=== PATIENT | female | born 1975 | race Caucasian/White ===

== ENCOUNTER 2019-11-20 12:31 | Outpatient (CLI) | payer OTHER, SELFPAY ==
[2019-11-20 12:45] LABS: Basophils Absolute Auto 0.1 K/mm3 (0.0-0.1); Basophils Percent Auto 0.7 % (0.2-1.2); Eosinophils Absolute Auto 0.3 K/mm3 (0-0.3); Eosinophils Percent Auto 3.4 % (0-4.4); Hematocrit 39.8 % (37.0-47.0); Hemoglobin 13.4 g/dL (12.0-15.0); Immature Granulocyte Absolute 0.03 K/mm3 (0.00-0.031); Immature Granulocyte Percent A 0.3 % (0-0.5); Lymphocytes Absolute Auto 1.99 K/mm3 (0.9-3.2); Lymphocytes Percent Auto 21.7 % (18.3-44.2); Mean Corpuscular HGB Conc 33.7 g/dl (32-36); Mean Corpuscular Hemoglobin 32.1 pg (26-34); Mean Corpuscular Volume 95.2 fl (80-100); Mean Platelet Volume 11.3 fl (7.4-10.4); Monocytes Absolute Auto 0.5 K/mm3 (0.1-0.6); Monocytes Percent Auto 5.9 % (2.6-8.5); Neutrophils Absolute Auto 6.2 K/mm3 (1.3-6.7); Platelet Count Result 278 k/mm3 (150-375); Red Blood Count 4.18 M/mm3 (4.2-5.4); Red Cell Distribution Width 12.7 % (11.5-14.5); White Blood Count 9.2 K/mm3 (4.5-10.0)
[2019-11-20 12:58] LABS: Anion Gap 7.2 mmol/L (7-16); Blood Urea Nitrogen 10 mg/dL (7-17); Calcium 8.8 mg/dL (8.4-10.2); Carbon Dioxide 28 mmol/L (22-30); Chloride 106 mmol/L (98-107); Cholesterol 186 mg/dL (0-200); Estimated Glomerular Filt Rate > 60; Glucose 97 mg/dL (65-105); HDL Direct 62 mg/dL; Magnesium 2.2 mg/dL (1.6-2.3); Potassium 4.2 mmol/L (3.4-5.0); Sodium 137 mmol/L (137-145); Triglycerides 72 mg/dL (<150)
[2019-11-20 13:09] LABS: LDL Cholesterol Direct 104 mg/dL
[2019-11-20 13:34] LABS: Vitamin D 25 Hydroxy 34.2 ng/mL
== END 2019-11-20 12:32 | disposition home or self-care (01) ==
PROVIDERS: PCP Family Medicine; Visit Provider Nurse Practitioner Family
DX: R68.82 Decreased libido (principal); G25.81 Restless legs syndrome; R53.83 Other fatigue; Z13.220 Encounter for screening for lipoid disorders; R20.2 Paresthesia of skin; Z13.29 Encounter for screening for other suspected endocrine disorder; E56.9 Vitamin deficiency, unspecified
CPT/HCPCS: 36415; 80048; 80061; 82306; 82607; 83735; 84443; 85025

== ENCOUNTER 2019-12-10 12:52 | Outpatient (CLI) | payer OTHER, SELFPAY ==
--- NOTE | 2019-12-10 15:00 | NEURO_ITS ---
Patient Number: [id number] Impression: # Complains of numbness and restlessness of legs. # Normal nerve conduction study including F-waves. # Normal needle/EMG exam without evidence of neurogenic changes. # Clinical correlation recommended. Nerve Conduction Studies Anti Sensory Summary Table Stim Site NR Peak (ms) P-T Amp (?V) Site1 Site2 Delta-P (ms) Dist (cm) Simón (m/s) Left Sup Fibular Anti Sensory (Ant Lat Mall) 14 cm 3.6 10.7 14 cm Ant Lat Mall 3.6 16.0 44 Right Sup Fibular Anti Sensory (Ant Lat Mall) 14 cm 3.3 6.6 14 cm Ant Lat Mall 3.3 16.0 48 Left Sural Anti Sensory (Lat Mall) Calf 3.7 7.7 Calf Lat Mall 3.7 16.0 43 Right Sural Anti Sensory (Lat Mall) Calf 3.1 5.2 Calf Lat Mall 3.1 16.0 52 Motor Summary Table Stim Site NR Onset (ms) O-P Amp (mV) Site1 Site2 Delta-0 (ms) Dist (cm) Simón (m/s) Left Peroneal Motor (Vastus Med) Ankle 4.0 1.2 Popit Ankle 7.3 37.0 51 Popit 11.3 1.3 Right Peroneal Motor (Vastus Med) Ankle 3.9 3.9 Popit Ankle 7.7 38.0 49 Popit 11.6 3.1 Left Tibial Motor (Abd Neville Brev) Ankle 4.9 5.5 Knee Ankle 8.5 40.0 47 Knee 13.4 2.8 Right Tibial Motor (Abd Neville Brev) Ankle 4.5 8.5 Knee Ankle 8.4 42.0 50 Knee 12.9 7.1 F Wave Studies NR F-Lat (ms) L-R F-Lat (ms) Left Peroneal (Mrkrs) (EDB) 46.96 0.08 Right Peroneal (Mrkrs) (EDB) 46.87 0.08 Left Tibial (Mrkrs) (Abd Hallucis) 47.79 0.18 Right Tibial (Mrkrs) (Abd Hallucis) 47.98 0.18 EMG Side Muscle Nerve Root Ins Act Fibs Amp Dur Recrt Comment Right AntTibialis Dp Br Fibular L4-5 Nml Nml Nml Nml Nml Right Gastroc Tibial S1-2 Nml Nml Nml Nml Nml Right Fibularis Long Sup Br Fibular L5-S1 Nml Nml Nml Nml Nml Right Flex Dig Long Tibial L5-S2 Nml Nml Nml Nml Nml Right Ext Dig Brev Dp Br Fibular L5, S1 Nml Nml Nml Nml Nml Left AntTibialis Dp Br Fibular L4-5 Nml Nml Nml Nml Nml Left Gastroc Tibial S1-2 Nml Nml Nml Nml Nml Left Fibularis Long Sup Br Fibular L5-S1 Nml Nml Nml Nml Nml Left Flex Dig Long Tibial L5-S2 Nml Nml Nml Nml Nml Left Ext Dig Brev Dp Br Fibular L5, S1 Nml Nml Nml Nml Nml Right QuadratusFem QuadFemoris L4-5, S1 Nml Nml Nml Nml Nml Left QuadratusFem QuadFemoris L4-5, S1 Nml Nml Nml Nml Nml MTDD
== END 2019-12-10 12:53 | disposition home or self-care (01) ==
PROVIDERS: PCP Family Medicine; Visit Provider Nurse Practitioner Family
DX: R20.2 Paresthesia of skin (principal)
CPT/HCPCS: 95886; 95910

== ENCOUNTER 2023-08-08 12:25 | Outpatient (CLI) | payer OTHER, SELFPAY ==
--- NOTE | ~2023-08-08 | XR_ITS ---
Clinical Indication: Smoking history PA and lateral views of the chest: Comparison: None Findings: The lungs are clear, without evidence of focal consolidation or pleural effusion. Cardiome diastinal silhouette is within normal limits. Bones and soft tissues are unremarkable. Impression: Normal chest. Reviewed, dictated and finalized at location . Impression: Normal chest.
[2023-08-08 12:43] LABS: Basophils Percent Auto 0.4 % (0.2-1.2); Eosinophils Absolute Auto 0.2 K/mm3 (0-0.3); Eosinophils Percent Auto 2.7 % (0-4.4); Hematocrit 40.7 % (37.0-47.0); Hemoglobin 13.5 g/dL (12.0-15.0); Immature Granulocyte Absolute 0.03 K/mm3 (0.00-0.031); Immature Granulocyte Percent A 0.3 % (0-0.5); Lymphocytes Percent Auto 31.1 % (18.3-44.2); Mean Corpuscular HGB Conc 33.2 g/dl (32-36); Mean Corpuscular Hemoglobin 32.4 pg (26-34); Mean Corpuscular Volume 97.6 fl (80-100); Mean Platelet Volume 11.3 fl (7.4-10.4); Monocytes Absolute Auto 0.7 K/mm3 (0.1-0.6); Monocytes Percent Auto 7.2 % (2.6-8.5); Neutrophils Absolute Auto 5.2 K/mm3 (1.3-6.7); Neutrophils Percent Auto 58.3 % (45.5-73.1); Platelet Count Result 323 k/mm3 (150-375); Red Blood Count 4.17 M/mm3 (4.2-5.4); Red Cell Distribution Width 13.1 % (11.5-14.5)
[2023-08-08 12:49] LABS: Alanine Aminotransferase 14 U/L (6-35); Albumin Level 4.5 g/dL (3.5-5.1); Alkaline Phosphatase 60 U/L (38-126); Anion Gap 6 mmol/L (4-12); Aspartate Amino Transferase 22 U/L (14-36); Bilirubin,Total 0.9 mg/dL (0.2-1.3); Blood Urea Nitrogen 10 mg/dL (7-17); Calcium 9.7 mg/dL (8.4-10.2); Carbon Dioxide 27 mmol/L (22-30); Chloride 105 mmol/L (98-107); Cholesterol 167 mg/dL (0-200); Estimated Glomerular Filt Rate > 60; Glucose 88 mg/dL (65-110); HDL Direct 71 mg/dL; Potassium 4.3 mmol/L (3.4-5.0); Sodium 138 mmol/L (137-145); Triglycerides 56 mg/dL (<150)
[2023-08-08 13:00] LABS: LDL Cholesterol Direct 86 mg/dL
[2023-08-14 02:19] LABS: Prolactin 12.4 ng/mL
[2023-08-16 18:14] LABS: Estrogen 125 pg/mL
== END 2023-08-08 12:26 | disposition home or self-care (01) ==
LOC: ANHLAB 12:26
PROVIDERS: PCP Family Medicine; Visit Provider Nurse Practitioner Adult Health
DX: Z13.220 Encounter for screening for lipoid disorders (principal); N93.9 Abnormal uterine and vaginal bleeding, unspecified; N64.3 Galactorrhea not associated with childbirth; F17.210 Nicotine dependence, cigarettes, uncomplicated; Z13.29 Encounter for screening for other suspected endocrine disorder
CPT/HCPCS: 36415; 71046; 80053; 80061; 82672; 84146; 84443; 85025

== ENCOUNTER 2023-10-15 11:28 | Outpatient (CLI) | payer OTHER, SELFPAY ==
--- NOTE | 2023-10-15 11:30 | ECG_ITS ---
Test Date: 2023-10-15 11:48:13 Measurements Intervals [place] Rate: 65 P: 79 [place]: 174 QRS: 78 QRSD: 81 T: 48 QT: 412 QTc: 431 Interpretive Statements SINUS RHYTHM WITH SINUS ARRHYTHMIA No previous ECG available for comparison Electronically Signed On 10-15-2023 12:13:49 CDT by Holden Snyder M.D.
[2023-10-15 11:57] LABS: Basophils Absolute Auto 0.1 K/mm3 (0.0-0.1); Basophils Percent Auto 0.6 % (0.2-1.2); Eosinophils Absolute Auto 0.2 K/mm3 (0-0.3); Eosinophils Percent Auto 2.3 % (0-4.4); Hematocrit 41.1 % (37.0-47.0); Hemoglobin 13.7 g/dL (12.0-15.0); Immature Granulocyte Absolute 0.04 K/mm3 (0.00-0.031); Immature Granulocyte Percent A 0.4 % (0-0.5); Lymphocytes Absolute Auto 2.28 K/mm3 (0.9-3.2); Lymphocytes Percent Auto 25.1 % (18.3-44.2); Mean Corpuscular HGB Conc 33.3 g/dl (32-36); Mean Corpuscular Hemoglobin 32.3 pg (26-34); Mean Corpuscular Volume 96.9 fl (80-100); Mean Platelet Volume 11.4 fl (7.4-10.4); Monocytes Absolute Auto 0.6 K/mm3 (0.1-0.6); Monocytes Percent Auto 6.5 % (2.6-8.5); Neutrophils Absolute Auto 5.9 K/mm3 (1.3-6.7); Neutrophils Percent Auto 65.1 % (45.5-73.1); Platelet Count Result 291 k/mm3 (150-375); Red Blood Count 4.24 M/mm3 (4.2-5.4); Red Cell Distribution Width 11.7 % (11.5-14.5); White Blood Count 9.1 K/mm3 (4.5-10.0)
== END 2023-10-15 11:29 | disposition home or self-care (01) ==
PROVIDERS: PCP Family Medicine; Visit Provider Obstetrics & Gynecology
DX: Z01.818 Encounter for other preprocedural examination (principal); N93.9 Abnormal uterine and vaginal bleeding, unspecified; I49.8 Other specified cardiac arrhythmias
CPT/HCPCS: 36415; 85025; 86850; 86900; 86901; 93005

== ENCOUNTER 2023-10-18 00:20 | Day surgery (SDC) | payer OTHER, SELFPAY ==
[2023-10-10 14:07] VITALS: BMI 18.8
--- NOTE | 2023-10-10 14:34 | PC.NURSE ---
Report to the Outpatient Waiting Room, entrance under the green pavilion located off [facility], at time _6:00AM_ on date _Sat10/18/23 . Planned Procedure Time: _7:30AM__. Time changes happen often and if your time is changed the preop area will call you the afternoon before. - You and your visitor (MAX OF 2) will be asked to self-screen and do not enter if you have any COVID symptoms. - A mask is optional within the hospital at this time. Patients may have clear liquids (water, carbonated beverages, clear teas, apple juice) until 3 hours prior to surgery with a maximum of 20 ounces. - No food from midnight until time of surgery Take the following medications with a SIP of water the morning of surgery: __PROPANOLOL DO NOT STOP ANY OF YOUR OTHER PRESCRIPTION MEDICATIONS PRIOR TO SURGERY ?EXCEPT THE FOLLOWING Medications to discontinue per physician N/A Date to take last dose____N/A Please no make-up, nail slovak, hairspray, perfume, deodorant, or body powder the day of surgery. No jewelry (including any body piercings) or valuables the day of surgery, leave them at home. Please take a shower or bath the night before, or the morning of, surgery with an antibacterial soap. Wear comfortable, loose fitting clothing. PLEASE BRING A SMALL BAG FOR YOUR OVER NIGHT STAY - Jewelry must be removed prior to entering the operating room. Rings and piercings that are not removed may be cut off. - The hospital will not accept responsibility for valuables. - Please leave all valuables, including medications, at home the day of surgery. If you are going home after surgery, a licensed feeder driver must drive you home. - NO public transportation without another adult if you receive anesthesia. - We recommend that an adult stay with you for 24 hours following discharge. - We also recommend that you do not drive, make important decision, drink alcoholic beverages, or take any drugs that were not prescribed by your health care provider for at least 24 hours after your discharge time. Follow any additional instructions given to you from your surgeon. If you or anyone in your household have experienced Covid symptoms in the past week, please notify your surgeon or the nurse liaison at the phone number below for possible testing. Telephone instructions given to __CRISTÓBALA__and asked if any additional questions and then verbalized understanding. Patient advised to call surgeon office or pre surgery nurse liaison [phone] if any additional questions.
--- NOTE | 2023-10-15 12:33 | PM.IMHP ---
H&P: HPI History of Present Illness Date/Time: 10/15/23 12:33 Chief Complaint: Pelvic pain pelvic prolapse with dyspareunia next excessive heavy bleeding Narrative: 47 female 4 para 3 admitted for robotic total vaginal hysterectomy and bilateral salpingo-oophorectomy secondary to bleeding pain and the uterine fibroid as well prolapse. She has tried IUD she has tried patches she is a smoker and is unable to take oral contraceptives. This interferes with her home and work life. She had her hysterectomy she also like her ovaries which really is very adamant about. I explained the physiologic and psychologic changes that can occur with the risk of for disease but she is adamant she would like the ovaries out. Risks and benefits reviewed including but not exclusive of aspiration pneumonia bleeding transfusion infection perforation injury to bowel bladder ureters of the floors with need for open laparotomy she received the ACOG handout entitled hysterectomy as well as de Carmina handout. She had all questions answered. She asked proceeded [facility] Past Medical History Medical History BMI 20.0-20.9, adult Closed right ankle fracture Galactorrhea Screening for lipid disorders Screening for thyroid disorder Smoking greater than 30 pack years Tobacco abuse Vaginal hemorrhage Family History Family History Mother Hypertension Cerebrovascular accident Acute myocardial infarction Father Hypertension Cerebrovascular accident Acute myocardial infarction Grandparent Diabetes mellitus Social History Social History Smoking packs per day: 0.75 Smoking cigarettes per day: 15.0 Years smoked: 30 Smoking pack-years: 22.50 Smoking status: Current every day smoker Tobacco type: cigarettes Second hand tobacco smoke exposure: No Alcohol intake: current Substance use: current Substance use type: marijuana Living arrangements: with family Spiritual care concerns: No Meds Home Medications and Allergies Home Medications Medication Instructions Recorded Confirmed Type propranolol 10 mg tablet 20 mg PO DAILY 08/07/23 10/10/23 History Allergies Allergy/AdvReac Type Severity Reaction Status Date / Time ibuprofen Allergy Intermediate Swelling Verified 10/10/23 14:53 Penicillins Allergy Unknown Other Verified 10/10/23 14:53 Exam Const: General: cooperative, healthy appearing and comfortable Nutritional Appearance: average body habitus Orientation/consciousness: oriented to person, oriented to place and oriented to time Resp: Effort & Inspection: normal respiratory effort Cardio: Rate: regular rate Rhythm: regular rhythm Heart sounds: S1 normal heart sound present and S2 normal heart sound present GI: Inspection: normal to inspection : External Female Exam: normal external appearance Speculum Exam - Vagina: normal appearance of the vagina Speculum Exam - Cervix: normal appearance of the cervix (Second-degree prolapse present) Bimanual exam- vagina & uterus: enlarged and Uterine tenderness Bimanual Exam- Adnexa, other: normal adnexae Assessment and Plan Assessment and plan (1) Uterine prolapse: Code(s): N81.4 - Uterovaginal prolapse, unspecified Status: Acute (2) Dyspareunia: Status: Acute (3) Enlarged uterus: Code(s): N85.2 - Hypertrophy of uterus Status: Acute Assessment and Plan: Robotic total vaginal hysterectomy and salpingo-oophorectomy
[2023-10-18] VITALS (15 sets, daily range): BP systolic 95–124; BP diastolic 46–83; PULSE 46–73; RESP 10–18; TEMP 36.4–37.9; O2SAT 97–100; BMI 18.7
--- NOTE | 2023-10-18 05:40 | WPDHPUPDATE1 ---
History and Physical Update Update Date/Time: 10/18/23 05:40 History and Physical has been reviewed, including an updated exam of the patient. There are NO changes in the patient's condition. Risks, benefits, and alternatives have been discussed and questions answered. Patient agrees to proceed with procedure.
[2023-10-18] MEDS: LACTATED RINGERS 1,000 ML 30 ML IV CONT ×2 (06:25→08:48)
[2023-10-18] MEDS: ACETAMINOPHEN 500 MG TABLET 1000 MG PO (06:37)
[2023-10-18] MEDS: KETOROLAC 15 MG/ML VIAL (*BKC) IV PUSH (06:45)
--- NOTE | 2023-10-18 07:08 | P.PNAN_ITS ---
Anes - Initial Pre Proc Eval Procedure: Operation Date: 10/18/23 07:30 Proposed Procedures p Robotic Assisted Total Vaginal Hysterectomy with Bilateral Salpingo- oophorectomy - Aron Medina MD Date/Time: 10/18/23 07:08 Surgeon: Aorn Medina MD Pre Op Diagnosis: Uterine Prolapse, Pelvic Pain, Irg Bleeding Patient Data Age: 47 Gender: F Height: 1.7 m Weight: 54.5 kg Allergies Allergy/AdvReac Type Severity Reaction Status Date / Time ibuprofen Allergy Intermediate Swelling Verified 10/10/23 14:53 Penicillins Allergy Unknown Other Verified 10/10/23 14:53 Home Medications Medication Instructions Recorded Confirmed Type propranolol 10 mg tablet 20 mg PO DAILY 08/07/23 10/10/23 History hydrocodone 5 mg-acetaminophen 325 1 tablet PO Q4H PRN pain #20 tabs 10/18/23 Rx mg tablet Patient hx anesthesia problems: none Family hx anesthesia problems: none Results Review: All pre-operative results and documents have been reviewed as part of the pre-operative evaluation. [facility] Past Medical History Medical History BMI 20.0-20.9, adult Closed right ankle fracture Galactorrhea Screening for lipid disorders Screening for thyroid disorder Smoking greater than 30 pack years Tobacco abuse Vaginal hemorrhage Family History Family History Mother Hypertension Cerebrovascular accident Acute myocardial infarction Father Hypertension Cerebrovascular accident Acute myocardial infarction Grandparent Diabetes mellitus Social History Social History Smoking packs per day: 0.75 Smoking cigarettes per day: 15.0 Years smoked: 30 Smoking pack-years: 22.50 Smoking status: Current every day smoker Tobacco type: cigarettes Second hand tobacco smoke exposure: No Alcohol intake: current Substance use: current Substance use type: marijuana Living arrangements: with family Spiritual care concerns: No Anes - Eval Final PreProcedure Day of Procedure 10/18/23 07:08 Patient weight: normal Heart: regular rate and rhythm Lungs: clear to auscultation Airway: Mallampati scale and special considerations (L upper incisor w chip noted. ) Neurological: alert and oriented Last oral intake: >/= 8 hours ASA classification: II Emergent: no Anesthetic plan: proceed Anesthesia type and monitoring: general ETT and standard monitoring Results Review: All pre-operative results and documents have been reviewed as part of the pre- operative evaluation. Pt w tremors, b nuris. Smoker, smoked at 530 am, smokes marijuana nightly. Informed Consent: The patient's anesthetic plan and its attendant risks and benefits were discussed with the patient/family/POA. Questions were solicited and answers provided to the satisfaction of the patient/family/POA.
[2023-10-18] MEDS: ceFAZolin 2 GM/D5W 50 ML 2 GM/50 ML BAG IVPB (07:32)
--- NOTE | 2023-10-18 08:35 | W.PM.PROC2 ---
Procedure Note - Detailed Date of Procedure 10/18/23 Pre-op Diagnosis Uterine Prolapse, Pelvic Pain, Irg Bleeding Post-op Diagnosis Same Procedure Performed robotic total vaginal hysterectomy and bilateral salpingo-oophorectomy Surgeon Aron Medina MD Anesthesia General Indications with 7-year-old female with uterine prolapse and irregular bleeding refractory medical therapy Findings uterine mass with enlarged uterus. Some adhesions from colon to the left lateral sidewall. Description of Procedure the patient was prepped draped in the normal sterile fashion placed in the dorsal lithotomy position excellent general trach anesthesia weighted speculum placed in posterior fornix vagina. Anterior lip of the cervix grasped with single-tooth tenaculum. Uterus sounded to 11cm. Serial dilatation fragmented dilators followed by passage of 3. Point cold. Next a 16 Pashto catheter placed in bladder draining clear urine. Weighted speculum a single-tooth. Gloves changed. A supraumbilical incision made the Veress needle passed in the abdomen filled with CO2 gas to 15 of mercury. The 8mm trocar advanced in the abdomen. Downside visualized no injury seen. Patient placed in Trendelenburg and left and right lateral quadrant incision made. 8Mm trocars advanced under direct visualization assuring no injury. Right upper quadrant incision made the 8mm trocar advanced under direct visualization assuring injury. The robot was docked. Attention was turned to the senior counsel commercial. The left round ligament grasped, burned, cut. Anteriorly a bladder flap was formed by sharply dissecting the peritoneum dissecting that caudally away from the cervix uterus the opposite round ligament which was clamped, burned, cut. Next the left infundibulopelvic structure was skeletonized clamping burning cutting and bringing this to the level of the previously cut round ligament. In similar fashion to remove the right ovary and tube, the infundibulopelvic structure was clamped, burned, cut and brought to the level of previously cut round ligament. Next the cardinal broad ligaments on the left were skeletonized clamping burning cutting a brace on lateral edge of the cervix uterus hugging the cervix and uterus until the uterine vessels could be seen on the left. These were large and tortuous and were individually clamped, burned, cut. In similar fashion on the right the cardinal broad ligaments were clamped, burned, cut until the uterine vessels could be seen on the right. These vessels were individually clamped, burned, cut. Hemostasis was assured and blanching of the uterus was noted. A colpotomy incision was made in the cervix uterus ovaries and tubes removed through the vagina. The vagina was then closed with continuous running 0V lock from lateral edge to lateral edge and back to the midline. Irrigation undertaken until clear and hemostasis was assured. The robot was undocked. The gas removed from the abdomen. The trocars removed and the incisions closed with 4 Monocryl glue. The instruments removed from the vagina the patient was awakened and went to recovery in satisfactory condition. All sponge, needle, instrument counts were correct. There were no immediate complications Estimated Blood Loss 25 Drains No Packing No Pathology Yes Complications No immediate complications Condition Stable Disposition PACU
--- NOTE | 2023-10-18 08:39 | PM.DS ---
DS: Admitting Diagnosis Discharge Date 10/19/2023 Admitting Diagnosis uterine prolapse/ enlarged uterus/dyspareunia DS: Discharge Diagnosis Discharge Diagnosis (1) Enlarged uterus: Code(s): N85.2 - Hypertrophy of uterus Status: Acute (2) Dyspareunia: Status: Acute (3) Uterine prolapse: Code(s): N81.4 - Uterovaginal prolapse, unspecified Status: Acute DS: Summary Hospital Course Reason for hospitalization: patient was admitted for robotic total vaginal hysterectomy and bilateral salpingo-oophorectomy on 10/18/2023. She underwent an unremarkable procedure Hospital Course: patient's hospital course unremarkable. She remained afebrile. She was up, eating regular diet, ambulating, voiding without difficulty, and generally without complaints. Time Spent with Patient Time attestation: Total time spent providing and/or coordinating discharge services: Exam Const: General: cooperative, healthy appearing and comfortable Nutritional Appearance: average body habitus Orientation/consciousness: oriented to person, oriented to place and oriented to time HENMT: Head: normal to inspection Resp: Effort & Inspection: normal respiratory effort Cardio: Rate: regular rate Rhythm: regular rhythm Heart sounds: S1 normal heart sound present and S2 normal heart sound present GI: Inspection: normal to inspection and incision ( Wounds are clean dry and intact) DS: Data Data Completed and Pending Pending studies at discharge: Pending at discharge 10/18/23 08:12 Surgical [PTH] Routine Discharge Plan Discharge Patient Disposition: Home, Self-Care Stand Alone Forms: General Discharge Instructions Follow-up/Referrals: Aron Luther MD [Physician] - Discharge Medications: New hydrocodone-acetaminophen 5-325 mg tablet 1 tablet PO Q4H PRN (Reason: pain) Qty: 20 0RF No Action propranolol 10 mg tablet 20 mg PO DAILY
[2023-10-18] MEDS: ONDANSETRON INJ 4 MG/2 ML VIAL IV PUSH (09:05)
[2023-10-18] MEDS: fentaNYL CITRATE INJ (*CRX) 100 MCG/2 ML VIAL 25 MCG IV PUSH ×4 (09:17→09:59)
[2023-10-18] MEDS: FUROSEMIDE INJ 40 MG/4 ML VIAL 20 MG IV PUSH (09:47)
--- NOTE | 2023-10-18 10:10 | OBPPTRN ---
Patient transferred to post room #289 via bed. Support person present. Oriented to unit, room, information board, rooming in, admission packet and security measures. Patient verbalizes understanding.
[2023-10-18] MEDS: DOCUSATE SODIUM 100 MG CAPSULE PO ×2 (10:52→16:53)
[2023-10-18] MEDS: DEXTROSE 5%/LACTATED RINGERS 1,000 ML 125 ML IV CONT (10:52)
[2023-10-18] MEDS: ESTRADIOL 7 DAY 0.1 MG PATCH TRANSDERM (10:56)
[2023-10-18] MEDS: HYDROcodone/acetaminophen (*CRX) 10-325 MG TABLET 1 TAB PO ×5 (10:57→23:30)
[2023-10-18] MEDS: ACETAMINOPHEN 325 MG TABLET 650 MG PO ×2 (13:36→21:08)
[2023-10-18] MEDS: SIMETHICONE 80 MG TAB.CHEW PO ×2 (13:40→16:53)
[2023-10-19] MEDS: ACETAMINOPHEN 325 MG TABLET 650 MG PO (03:14)
[2023-10-19 03:30] VITALS: BP 121/71; PULSE 71; RESP 16; TEMP 37.1; O2SAT 98
[2023-10-19 05:04] LABS: Basophils Absolute Auto 0.1 K/mm3 (0.0-0.1); Basophils Percent Auto 0.3 % (0.2-1.2); Eosinophils Percent Auto 0.1 % (0-4.4); Hematocrit 35.2 % (37.0-47.0); Hemoglobin 11.8 g/dL (12.0-15.0); Immature Granulocyte Absolute 0.11 K/mm3 (0.00-0.031); Immature Granulocyte Percent A 0.7 % (0-0.5); Lymphocytes Percent Auto 11.3 % (18.3-44.2); Mean Corpuscular HGB Conc 33.5 g/dl (32-36); Mean Corpuscular Hemoglobin 32.8 pg (26-34); Mean Corpuscular Volume 97.8 fl (80-100); Mean Platelet Volume 12.4 fl (7.4-10.4); Monocytes Absolute Auto 1.2 K/mm3 (0.1-0.6); Monocytes Percent Auto 7.2 % (2.6-8.5); Neutrophils Absolute Auto 13.5 K/mm3 (1.3-6.7); Neutrophils Percent Auto 80.4 % (45.5-73.1); Platelet Count Result 220 k/mm3 (150-375); Red Cell Distribution Width 11.7 % (11.5-14.5); White Blood Count 16.8 K/mm3 (4.5-10.0)
[2023-10-19] MEDS: HYDROcodone/acetaminophen (*CRX) 5-325 MG TABLET 1 TAB PO ×2 (05:06→08:49)
[2023-10-19] MEDS: SIMETHICONE 80 MG TAB.CHEW PO (07:29)
[2023-10-19] MEDS: DOCUSATE SODIUM 100 MG CAPSULE PO (07:29)
[2023-10-19 07:38] VITALS: BP 119/62; PULSE 52; RESP 18; TEMP 37.3; O2SAT 100
[2023-10-19] MEDS: ENOXAPARIN 40 MG/0.4 ML SYRINGE SUB-Q (08:49)
--- NOTE | 2023-10-19 08:58 | PM.GYNPNOP ---
MUSEUM SERVICE SCHEDULER - A/P Postoperative Procedures: Procedures Operation Date: 10/18/23 07:30 Actual Procedure Side Surgeon p Robotic Assisted Total Vaginal Hysterectomy with Bilateral Salpingo-oophorectomy Bilateral Aron Medina MD Postoperative day: 1 Postoperative status: doing well Postoperative plan: routine post-op care and discharge Time Spent With Patient Time: Total time spent is greater than 50% in coordination of care (as documented) at patient's floor/unit and/or counseling patient: Time with patient: less than 15 minutes MUSEUM SERVICE SCHEDULER- PN:Subj Post-Op Subjective Date/time seen: 10/19/23 08:58 Subjective: patient reports feeling better, pain is well controlled and patient is tolerating oral intake Exam Narrative: inc c/d/i abdomen soft, nd, nt MUSEUM SERVICE SCHEDULER - PN: Obj Data Vital Signs Vital Signs: Vital Signs - 24 hr 10/18/23 09:00 10/18/23 09:05 10/18/23 09:15 Temperature Pulse Rate 72 62 Respiratory Rate 12 16 Blood Pressure 114/69 115/61 Pulse Oximetry 100 100 99 Oxygen Delivery Simple Face Mask Room Air Room Air Oxygen Flow Rate 8 10/18/23 09:30 10/18/23 09:45 10/18/23 10:00 Temperature Pulse Rate 54 L 46 L 66 Respiratory Rate 12 13 12 Blood Pressure 119/77 117/73 115/70 Pulse Oximetry 100 99 100 Oxygen Delivery Room Air Room Air Room Air Oxygen Flow Rate 10/18/23 11:00 10/18/23 10:20 10/18/23 12:59 Temperature 97.9 F 100.2 F H Pulse Rate 50 L 54 L Respiratory Rate 16 16 Blood Pressure 110/69 95/55 L Pulse Oximetry 100 98 Oxygen Delivery Room Air Oxygen Flow Rate 10/18/23 12:59 10/18/23 13:36 10/18/23 14:00 Temperature 100.2 F H 99.2 F Pulse Rate Respiratory Rate Blood Pressure Pulse Oximetry Oxygen Delivery Room Air Oxygen Flow Rate 10/18/23 15:30 10/18/23 15:30 10/18/23 20:00 Temperature 98.1 F 99 F Pulse Rate 54 L 56 L Respiratory Rate 18 18 Blood Pressure 100/62 107/56 L Pulse Oximetry 99 97 Oxygen Delivery Room Air Oxygen Flow Rate 10/18/23 23:30 10/18/23 23:30 10/19/23 03:30 Temperature 98.1 F 98.8 F Pulse Rate 66 66 71 Respiratory Rate 15 15 16 Blood Pressure 97/58 L 121/71 Pulse Oximetry 97 97 98 Oxygen Delivery Room Air Oxygen Flow Rate 10/19/23 07:38 10/19/23 07:38 Temperature 99.1 F Pulse Rate 52 L Respiratory Rate 18 Blood Pressure 119/62 Pulse Oximetry 100 Oxygen Delivery Room Air Oxygen Flow Rate Intake/Output Intake/Output: Intake & Output 10/16/23 10/17/23 10/18/23 10/19/23 23:59 23:59 23:59 23:59 Intake Total 850 1000 Output Total 2305 300 Balance -1455 700 Meds/Results Medications: Active Medications Generic Name Dose Route Start Last Admin Trade Name Freq PRN Reason Stop Dose Admin Acetaminophen 650 mg 10/18/23 13:13 10/19/23 03:14 Acetaminophen 325 Mg Tablet PO 650 mg Q6H PRN Administration Mild Pain (1-3) or Fever Hydrocodone Bitart/Acetaminophen 1 tab 10/18/23 10:07 10/19/23 08:49 Hydrocodone/Acetaminophen (*Crx) 5-325 Mg Tablet PO 1 tab Q3H PRN Administration Pain Rated 4-5 Hydrocodone Bitart/Acetaminophen 1 tab 10/18/23 10:07 10/18/23 23:30 Hydrocodone/Acetaminophen (*Crx) 10-325 Mg Tablet PO 1 tab Q3H PRN Administration Pain Rated 6 or Greater Docusate Sodium 100 mg 10/18/23 10:07 10/19/23 07:29 Docusate Sodium 100 Mg Capsule PO 100 mg BID CHARLENE Administration Enoxaparin Sodium 40 mg 10/19/23 09:00 10/19/23 08:49 Enoxaparin 40 Mg/0.4 Ml Syringe SUB-Q 40 mg DAILY CHARLENE Administration Naloxone HCl 0.1 mg 10/18/23 10:07 Naloxone Hcl 0.4 Mg/Ml Vial IV PUSH Q2M PRN Respiratory rate less than 10 Ondansetron HCl 4 mg 10/18/23 10:07 Ondansetron Inj 4 Mg/2 Ml Vial IV PUSH Q6H PRN Nausea And Vomiting Simethicone 80 mg 10/18/23 12:00 10/19/23 07:29 Simethicone 80 Mg Tab.Chew PO 80 mg TIDWM CHARLENE Administration Labs 10/19/23 03:24
--- NOTE | 2023-10-19 10:36 | PC.NURSE ---
This RN went into room to clean up patient room and remove breakfast tray post discharge, patients climara patch was found. This RN contacted patient and informed her that she would need to contact Dr. Jacob Medina's office to have a new one ordered to her pharmacy. Reiterated the importance of keeping the patch on and that the patch is good for 7 days unless instructed otherwise. Patient verbalized understanding.
== END 2023-10-19 10:18 | disposition home or self-care (01) ==
LOC: ANHSURGERY 05:56 → ANHOB2 10:09
PROVIDERS: PCP Family Medicine; Visit Provider Obstetrics & Gynecology
PROC: (CPT 58552; principal; 2023-10-18 07:30)
DX: N83.02 Follicular cyst of left ovary (principal); D25.0 Submucous leiomyoma of uterus; N80.03 Adenomyosis of the uterus; N87.9 Dysplasia of cervix uteri, unspecified; N88.8 Other specified noninflammatory disorders of cervix uteri; F17.210 Nicotine dependence, cigarettes, uncomplicated; F12.90 Cannabis use, unspecified, uncomplicated; Z82.49 Family history of ischemic heart disease and other diseases of the circulatory system
CPT/HCPCS: 58552; S2900; 36415; 85025; 86850; 86900; 86901; 88307; 93005; 99199; A9270; J0690; J1100; J1650; J1885; J1940; J2250; J2405; J2704; J3010; J7030; J7120; J7121